=== PATIENT | female | born 1965 | race Two or more races ===

== ENCOUNTER 2024-06-06 13:34 | Emergency (ER) | payer OTHER, SELFPAY ==
[~2024-06-06] VITALS: Ht 162.6 cm; Wt 65.0 kg
--- NOTE | 2024-06-06 13:42 | ED.PDOC ---
HPI (NEURO) HPI Comments 59 y.o female presents to the ED via EMS for an evaluation of a seizure today. EMS reports patient was at a restaurant with family who witnessed patient seize for one minute, described as tonic clonic. Patient was assisted down to the floor. Patient was postictal on scene, confused but upon ED arrival is alert and orientated x 4. Patient reports no recollection of eating out in a restaurant with family, states she thought she was at home. Patient had no head injury, nausea, vomiting, diarrhea, incontinence, tongue trauma, chest pain or SOB. Patient is asymptomatic at this time and mentions no medical history. Per family on scene, patient is not on any medication but has had dizzy spells in which she has been following up with PCP but no diagnose has been made. 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 History Family History Family History: Family hx of Cancer Social History Smoker: Other Alcohol: Occasionally Drugs: Denies Drug Use Lives In: Home Constitutional: denies: chills, diaphoresis, fatigue, fever, malaise, sweats, weakness, others EENTM: denies: blurred vision, double vision, ear bleeding, ear discharge, ear drainage, ear pain, ear ringing, eye pain, eye redness, hearing loss, mouth pain, mouth swelling, nasal discharge, nose bleeding, nose congestion, nose pain, photophobia, tearing, throat pain, throat swelling, voice changes, others Respiratory: denies: cough, hemoptysis, orthopnea, SOB at rest, shortness of breath, SOB with excertion, stridor, wheezing, others Cardiovascular: denies: chest pain, dizzy spells, diaphoresis, Dyspnea on exertion, edema, irregular heart beat, left arm pain, lightheadedness, palpitations, PND, syncope, others Gastrointestinal: denies: abdomen distended, abdominal pain, blood streaked bowels, constipated, diarrhea, dysphagia, difficulty swallowing, hematemesis, melena, nausea, poor appetite, poor fluid intake, rectal bleeding, rectal pain, vomiting, others Genitourinary: denies: abnormal vagina bleeding, burning, dyspareunia, dysuria, flank pain, frequency, hematuria, incontinence, pain, , vagina disch arge, urgency, others Neurological: reports: seizure; denies: dizziness, fainting, headache, left sided numbness, left sided weakness, numbness, paresthesia, pre-existing deficit, right sided numbness, right sided weakness, speech problems, tingling, tremors, weakness, others Musculoskeletal: denies: back pain, gout, joint pain, joint swelling, muscle pain, muscle stiffness, neck pain, others Integumetry: denies: bruises, change in color, change in hair/nails, dryness, laceration, lesions, lumps, rash, wounds, others Allergic/Immunocompromised: denies: Difficulty Healing, Frequent Infections, Hives, Itching, others Hematologic/Lymphatic: denies: anemia, blood clots, easy bleeding, easy bruising, swollen glands, others Endocrine: denies: excessive hunger, excessive sweating, excessive thirst, excessive urination, flushing, intolerance to cold, intolerance to heat, unexplained weight gain, unexplained weight loss, others Psychiatric: denies: anxiety, bipolar disorder, depression, hopeless, panic disorder, schizophrenia, sleepless, suicidal, others All Other Systems: Reviewed and Negative Physical Exam General Appearance: No Apparent Distress HEENT: Normal ENT Inspection, Pharynx Normal, TMs Normal Neck: Full Range of Motion, Non-Tender, Normal, Normal Inspection Respiratory: Chest Non-Tender, Lungs Clear, No Accessory Muscle Use, No Respiratory Distress, Normal Breath Sounds Cardiovascular: No Edema, No JVD, No Murmur, No Gallop, Normal Peripheral Pul ses, Regular Rate/Rhythm Breast Exam: Deferred Gastrointestinal: No Organomegaly, Non Tender, No Pulsatile Mass, Normal Bowel Sounds, Soft Genitalia: Deferred Pelvic: Deferred Rectal: Deferred Extremities: No calf tenderness, Normal capillary refill, Normal inspection, Normal range of motion, Non-tender, No pedal edema Musculoskeletal : Apperance: Normal Neurologic: Alert, wood block artist II-XII nml as Tested, Motor Weakness, No Sensory Deficits, Other (The patient was somewhat postictal) Cerebellar Function: Normal Reflexes: Normal Skin: Dry, Normal Color, Warm Lymphatic: No Adenopathy Was a procedure done? Was a procedure done?: No Differential Diagnosis (SZ) Seizure: Syncope, Encephalopathy, Epilepsy-Break Through, Epilepsy-Status General Weakness: Dehydration, Electrolyte imbalance X-Ray, Labs, Meds, VS Vital Signs Date Time Temp Pulse Resp B/P (MAP) Pulse Ox O2 Delivery O2 Flow Rate FiO2 06/06/24 14:23 98.1 92 24 111/70 (84) 95 98.1 06/06/24 13:40 104 06/06/24 13:34 98.1 109 18 111/68 (82) 100 98.1 Lab Test 06/06/24 13:44 Range/Units White Blood Count 8.3 4.4-10.8 10^3/uL Red Blood Count 4.60 4.0-5.20 10^6/uL Hemoglobin 13.9 12.2-16.2 g/dL Hematocrit 41.7 36.0-46.0 % Mean Corpuscular Volume 90.7 80.0-100.0 fL Mean Corpuscular Hemoglobin 30.3 28.0-32.0 pg Mean Corpuscular Hemoglobin Concent 33.4 32.0-36.0 g/dL Red Cell Distribution Width 14.1 11.8-14.3 % Platelet Count 268 140-450 10^3/uL Mean Platelet Volume 8.7 6.9-10.8 fL Neutrophils (%) (Auto) 54.3 37.0-80.0 % Lymphocytes (%) (Auto) 35.7 10.0-50.0 % Monocytes (%) (Auto) 8.1 0.0-12.0 % Eosinophils (%) (Auto) 0.8 0.0-7.0 % Basophils (%) (Auto) 1.1 0.0-2.0 % Neutrophils # (Auto) 4.5 1.6-8.6 10 ^3/uL Lymphocytes # (Auto) 3.0 0.4-5.4 10 ^3/uL Monocytes # (Auto) 0.7 0-1.3 10 ^3/uL Eosinophils # (Auto) 0.1 0-0.8 10 ^3/uL Basophils # (Auto) 0.1 0-0.2 10 ^3/uL Nucleated Red Blood Cells 0.0 % Sodium Level 140 136-145 mmol/L Potassium Level 3.8 3.5-5.1 mmol/L Chloride Level 103 98-107 mmol/L Carbon Dioxide Level 22 20-31 mmol/L Anion Gap 15 5-15 Blood Urea Nitrogen 12 9-23 mg/dL Creatinine 1.06 H 0.550-1.02 mg/dL Glomerular Filtration Rate Calc 61 >90 mL/min BUN/Creatinine Ratio 11.3 10.0-20.0 Serum Glucose 81 74-106 mg/dL Calcium Level 10.2 8.7-10.4 mg/dL Plasma/Serum Blood Alcohol < 3.0 <10 mg/dL Scan of the head shows: IMPRESSION: 1. No intracranial hemorrhage or mass effect. 2. 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 If there is concern for acute infection, recommend obtaining MRI brain with and without contrast to evaluate for related to edematous changes. The patient's CBC and chemistry panel is within normal limits The alcohol level is negative We are doing a DMV form for this patient. We did explain to the patient that she would have to having Neurology consult at some point and they stated that the patient was scheduled for an EEG in August. They are going to attempt to call the primary care doctor to move the EEG appointment sooner. The patient was totally asymptomatic at this time The patient is able to answer all questions appropriately The patient was being discharged and will follow up with the doctor Images Reviewed?: Images reviewed and evaluated by me Time of 1ST Reevaluation: 13:37 Reevaluation 1ST: Unchanged Patient Education/Counseling: Diagnosis, Treatment, Prognosis, Need For Follow Up Family Education/Counseling: No Family Present Departure 1 Departure Time of Disposition: 14:42 Impression: Primary Impression: New onset seizure Disposition: 01 HOME / SELF CARE / HOMELESS Condition: Fair Discharged With: Self, Relative Critical Care Note Critical Care Time?: No Stability Stability form required: No Heart Score Heart Score: Heart Score Response (Comments) Value History N/A 0 EKG N/A 0 Age N/A 0 Risk Factors N/A 0 Troponin N/A 0 Total 0 I personally scribed for IDRIS VILLANUEVA MD ([email or web address]) on 4/6/25 at 13:42. Electronically submitted by Gretchen Mills ([facility]). IDRIS VILLANUEVA MD Jun 06, 2024 13:42
[2024-06-06 13:52] LABS: Basophils # (auto) 0.1 10 ^3/uL (0-0.2); Basophils % (auto) 1.1 % (0.0-2.0); Eosinophils # (auto) 0.1 10 ^3/uL (0-0.8); Eosinophils % (auto) 0.8 % (0.0-7.0); Hematocrit 41.7 % (36.0-46.0); Hemoglobin 13.9 g/dL (12.2-16.2); Lymphocytes % (auto) 35.7 % (10.0-50.0); Mean Corpuscular Hemoglobin 30.3 pg (28.0-32.0); Mean Corpuscular Hgb Conc. 33.4 g/dL (32.0-36.0); Mean Corpuscular Volume 90.7 fL (80.0-100.0); Monocytes # (auto) 0.7 10 ^3/uL (0-1.3); Monocytes % (auto) 8.1 % (0.0-12.0); Neutrophils # (auto) 4.5 10 ^3/uL (1.6-8.6); Neutrophils % (auto) 54.3 % (37.0-80.0); Platelet Count (auto) 268 10^3/uL (140-450); Red Cell Distribution Width 14.1 % (11.8-14.3); White Blood Cell 8.3 10^3/uL (4.4-10.8)
[2024-06-06 14:06] LABS: Chloride 103 mmol/L (98-107); Potassium 3.8 mmol/L (3.5-5.1); Sodium 140 mmol/L (136-145)
[2024-06-06 14:07] LABS: Anion Gap 15 (5-15); Calcium 10.2 mg/dL (8.7-10.4); Carbon Dioxide 22 mmol/L (20-31)
[2024-06-06 14:12] LABS: BUN/Creatinine Ratio 11.3 (10.0-20.0); Blood Urea Nitrogen 12 mg/dL (9-23); Glucose 81 mg/dL (74-106)
[2024-06-06 14:17] LABS: Blood Alcohol < 3.0 mg/dL (<10)
[2024-06-06 14:23] VITALS: BP 111/70; TEMP 98.1
--- NOTE | 2024-06-06 14:28 | DVH ---
CT HEAD WITHOUT CONTRAST Indication: seizure EXAM DATE: 06/06/2024 01:51 PM COMPARISON: None TECHNIQUE: CT of the head without intravenous contrast. RADIATION DOSE: CTDIvol: 53.74 mGy, DLP: 970.78 mGy*cm FINDINGS: There is no intracranial hemorrhage. There is no extra-axial fluid, mass, mass effect or midline shif t. The ventricles are midline and normal in size. Basilar cisterns are patent. Pierce-white differentia tion is maintained. Extensive cerebral intracranial calcifications. The paranasal sinuses and mastoids are well-pneumatized. Imaged portion of the orbits are unremarkabl e. IMPRESSION: 1. No intracranial hemorrhage or mass effect. 2. 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 If there is concern for acute infection, recommend obtaining MRI brain wi th and without contrast to evaluate for related to edematous changes.
[2024-06-06 14:30] VITALS: PULSE 86; RESP 22; O2SAT 98
--- NOTE | 2024-06-07 13:28 | ECG ---
[facility] Test Date: 2024-06-06 Test Time: 13:40:39 Pat Name: SHANIA ANDREWS Department: ED Room: Gender: F Junior Underwriter: ADAN : 1965 Requested By: IDRIS VILLANUEVA Order Number: [id number] Reading MD: Melo Luna Measurements Intervals [place] Rate: 104 P: 64 [place]: 150 QRS: 0 QRSD: 91 T: 50 QT: 331 QTc: 436 Interpretive Statements Sinus tachycardia Electronically Signed On 06-09-2024 14:19:08 PDT by Melo Luna Please click the below link to view image of tracing.
== END 2024-06-06 14:59 | disposition home or self-care (01) ==
LOC: EDBD 13:34 → ER 13:34
DX: R56.9 Unspecified convulsions (principal); F17.200 Nicotine dependence, unspecified, uncomplicated; Z79.899 Other long term (current) drug therapy
CPT/HCPCS: 36415; 70450; 80048; 80320; 82947; 85025; 93005